=== PATIENT | female | born 1980 | race Caucasian/White ===

== ENCOUNTER 2017-10-20 05:24 | Inpatient (IN) ==
[2017-10-20] MEDS ORDERED: CITRIC ACID/SODIUM CITRATE 30 ML UDCUP PO PRN (05:34)
[2017-10-20] MEDS ORDERED: ceFAZolin 2,000 MG in PREMIX 1 EACH IV PRN (05:34)
[2017-10-20] MEDS ORDERED: FAMOTIDINE 20 MG/2 ML VIAL IV PRN (05:34)
[2017-10-20] MEDS ORDERED: OXYTOCIN/LR 20 UNIT/1,000 ML BAG IV PRN (05:37)
[2017-10-20] MEDS: LACTATED RINGERS 1,000 ML IV SCH ×2 (05:48→20:55)
[2017-10-20 06:02] LABS: Basophils % 0.2 % (0.0-0.8); Eosinophils # 0.1 10*3/uL (0.0-0.87); Eosinophils % 0.6 % (0.00-10.9); Hematocrit 32.1 VOL% (35.7-47.0); Hemoglobin 10.4 GM/DL (12.0-16.0); Immature Granulocytes % 1.9 %; Immature Granulocytes Absolute 0.34 #; Lymphocytes # 4.4 10*3/uL (1.4-4.0); Lymphocytes % 25.2 % (21.3-54.2); Mean Corpuscular HGB Conc 32.4 GM/DL (32-36); Mean Corpuscular Hemoglobin 27 PG (27-34); Mean Corpuscular Volume 81.7 FL (87-102); Mean Platelet Volume 10.1 FL (9.6-12.0); Monocytes # 1.1 10*3/uL (0.11-0.8); Monocytes % 6.1 % (1.7-12.7); Neutrophils # 11.6 10*3/uL (1.4-7.4); Platelet Count 291 T/CUMM (130-400); Red Blood Count 3.93 MC/CUMM (3.8-5.5); Red Cell Distribution Width 13.1 % (9.3-17.3); White Blood Count 17.5 T/CUMM (4-12)
[2017-10-20 06:18] LABS: Alanine Aminotransferase 22 U/L (13-56); Albumin 2.8 G/DL (3.4-5.0); Alkaline Phosphatase 183 U/L (45-117); Aspartate Amino Transferase 18 U/L (0-37); Bilirubin,Total < 0.39 MG/DL (0.2-1.0); Blood Urea Nitrogen 8 MG/DL (7-18); Glucose 89 MG/DL (74-106); Osmolality,Calculated 269.8 MOS/KG (273-304); Sodium 137 MMOL/L (136-145)
[2017-10-20] MEDS ORDERED: LACTATED RINGERS 1,000 ML IV SCH (08:45)
[2017-10-20] MEDS ORDERED: WITCH HAZEL PADS 100/JAR TOP PRN (10:03)
[2017-10-20] MEDS ORDERED: ONDANSETRON 4 MG/2 ML VIAL IV PRN (10:03)
[2017-10-20] MEDS ORDERED: RHO(D) IMMUNE GLOBULIN 300 MCG SYRINGE IM ONE (10:03)
[2017-10-20] MEDS ORDERED: HYDROCORTISONE 2.5% RECTAL CREAM 30 GM TUBE TOP PRN (10:03)
[2017-10-20] MEDS ORDERED: oxyCODONE/ACETAMINOPHEN 5-325 MG TABLET PO PRN ×2 (10:03)
[2017-10-20] MEDS ORDERED: OXYTOCIN/LR 20 UNIT/1,000 ML BAG IV ONE (10:03)
[2017-10-20] MEDS ORDERED: ACETAMINOPHEN 325 MG TABLET PO PRN (10:03)
[2017-10-20] MEDS ORDERED: MEASLES/MUMPS/RUBELLA VACCINE 0.5 ML VIAL SUBCUT ONE (10:03)
[2017-10-20] MEDS ORDERED: LANOLIN 50% CREAM 0.3 OZ TUBE TOP PRN (10:03)
[2017-10-20] MEDS ORDERED: DIPH/TET/ACEL PERT BOOSTER VACCINE 0.5 ML VIAL IM ONE (10:03)
[2017-10-20] MEDS ORDERED: BISACODYL 10 MG SUPP RECTAL PRN (10:03)
[2017-10-20] MEDS ORDERED: BENZOCAINE 20%/MENTHOL 0.5% SPRAY 56 GM CAN TOP PRN (10:03)
[2017-10-20] MEDS ORDERED: fentaNYL 100 MCG/2 ML VIAL ONE (10:15)
[2017-10-20] MEDS ORDERED: ePHEDrine 50 MG/ML AMP ONE (10:16)
[2017-10-20] MEDS ORDERED: BUPIVACAINE SPINAL 0.75% 2 ML AMP SPINAL ONE (10:21)
[2017-10-20 10:22] LABS: Amorphous Crystals,Urine Occasional /HPF (Few); Apearance,Urine CLEAR (Clear); Bacteria,Urine Occasional /HPF (Few); Bilirubin,Urine Negative (Negative); Blood, Urine Negative (Negative); Glucose,Urine (UA) Negative (Negative); Ketones,Urine 5 mg/dL (Negative); Nitrite,Urine Negative (Negative); Protein,Urine Negative; RBC,Urine <1 /HPF (0-4); Squamous Epithelial Cell,Urine Occasional /HPF (0-10); Urine Color Straw (Yellow); Urine Urobilinogen < 2.0 EU/DL (0.2-1.0); WBC,Urine 1 /HPF (0-6)
[2017-10-20] MEDS ORDERED: MORPHINE 10 MG/10 ML VIAL ONE (10:22)
[2017-10-20] MEDS ORDERED: ONDANSETRON 4 MG/2 ML VIAL ONE (10:22)
[2017-10-20] MEDS ORDERED: PHENYLEPHRINE 1 MG/10 ML SYRINGE IV ONE (10:23)
[2017-10-20] MEDS ORDERED: PROMETHAZINE 25 MG/1 ML VIAL IM ONE (13:25)
[2017-10-20] MEDS: ceFAZolin 1,000 MG in SYRINGE 1 EACH IV SCH (17:15)
[2017-10-20] MEDS ORDERED: PROMETHAZINE 25 MG/1 ML VIAL IM PRN (19:46)
[2017-10-20] MEDS: DOCUSATE SODIUM 100 MG CAPSULE PO SCH (21:18)
[2017-10-21] MEDS: IBUPROFEN 800 MG TABLET PO PRN ×2 (01:59→19:47)
[2017-10-21] MEDS: ceFAZolin 1,000 MG in SYRINGE 1 EACH IV SCH (02:01)
[2017-10-21 04:16] LABS: Basophils % 0.1 % (0.0-0.8); Eosinophils # 0.1 10*3/uL (0.0-0.87); Eosinophils % 0.5 % (0.00-10.9); Hematocrit 26.9 VOL% (35.7-47.0); Hemoglobin 8.7 GM/DL (12.0-16.0); Immature Granulocytes % 0.9 %; Immature Granulocytes Absolute 0.13 #; Lymphocytes # 2.7 10*3/uL (1.4-4.0); Lymphocytes % 17.9 % (21.3-54.2); Mean Corpuscular HGB Conc 32.3 GM/DL (32-36); Mean Corpuscular Hemoglobin 26 PG (27-34); Mean Platelet Volume 10.8 FL (9.6-12.0); Monocytes # 0.8 10*3/uL (0.11-0.8); Monocytes % 5.2 % (1.7-12.7); Neutrophils # 11.5 10*3/uL (1.4-7.4); Neutrophils % 75.4 % (38.7-73.9); Platelet Count 253 T/CUMM (130-400); Red Blood Count 3.32 MC/CUMM (3.8-5.5); Red Cell Distribution Width 13.2 % (9.3-17.3); White Blood Count 15.3 T/CUMM (4-12)
[2017-10-21] MEDS ORDERED: oxyCODONE/ACETAMINOPHEN 5-325 MG TABLET PO PRN (06:38)
[2017-10-21] MEDS: MAGNESIUM HYDROXIDE SUSP 30 ML UDCUP PO PRN ×2 (09:33→19:47)
[2017-10-21] MEDS: SIMETHICONE CHEW 80 MG TABLET PO PRN ×2 (09:33→19:47)
[2017-10-21] MEDS: DOCUSATE SODIUM 100 MG CAPSULE PO SCH ×2 (09:34→19:47)
[2017-10-21] MEDS: oxyCODONE/ACETAMINOPHEN 5-325 MG TABLET PO PRN ×3 (09:34→19:48)
[2017-10-22] MEDS: DOCUSATE SODIUM 100 MG CAPSULE PO SCH (01:37)
[2017-10-22] MEDS: SIMETHICONE CHEW 80 MG TABLET PO PRN (02:27)
[2017-10-22] MEDS: oxyCODONE/ACETAMINOPHEN 5-325 MG TABLET PO PRN (02:27)
[2017-10-22] MEDS: IBUPROFEN 800 MG TABLET PO PRN (02:27)
[2017-10-22 07:20] VITALS: BP 97/53
== END 2017-10-22 12:24 | disposition home or self-care (01) | DRG 766 ==
LOC: N.LDOUT 05:24 → N.LD 05:26 → N.OB 14:42
PROVIDERS: ADMIT Specialist; ATTEND Specialist
PROC: LDCSECT (ICD-10-PCS; 2017-10-20 07:30)